=== PATIENT | male | born 1995 | race Caucasian/White ===

== ENCOUNTER 2018-03-14 21:24 | Emergency (ER) | payer OTHER ==
[~2018-03-14] VITALS: Ht 180.3 cm; Wt 93.4 kg
[2018-03-14 21:25] VITALS: BP 144/93
[2018-03-14] MEDS ORDERED: PROPARACAINE OPHTH 0.5%, 15ML ONE (21:44)
--- NOTE | 2018-03-14 22:03 | NUR ---
PT D/C WITH D/C SUMMARY. PT EDUCATED ON NEED TO F/U IF SYMPTOMS RETURN. PT VERBALIZES UNDERSTANDING AND AMBULATES TO REGISTRATION DESK WITH STEADY GAIT. PT DENIES ANY OTHER NEEDS AT THIS TIME.
== END 2018-03-14 22:07 | disposition home or self-care (01) ==
LOC: ED 21:55
DX: H57.89 Other specified disorders of eye and adnexa (principal)
CPT/HCPCS: 99283